=== PATIENT | female | born 1960 | race Caucasian/White ===

== ENCOUNTER 2020-04-23 13:39 | Outpatient (CLI) | payer BC, SELFPAY ==
--- NOTE | ~2020-04-23 | MR_ITS ---
EXAMINATION: MR brain/brain stem wo/w con DATE: 04/23/2020 14:48 INDICATION: Seizures. TECHNIQUE: Magnetic resonance imaging (MRI) of the brain and brainstem was performed without and with 10 mL MultiHance intravenous contrast. Sequences included sagittal and axial T1-weighted FSE, axial diffusion-weighted FS EPI, axial T2*-weighted GRE, axial T2-weighted FLAIR Propeller, and axial T2-we ighted Propeller. Postcontrast sequences included axial and coronal T1-weighted FSE. Apparent diffusi on coefficient (ADC) maps were created. COMPARISON: Head CT 09/01/2019, cervical spine CT 08/27/2016 FINDINGS: There are scattered areas of nonspecific increased T2-weighted signal intensity in the cere bral white matter, which is within normal limits for the patient's age. There is no intracranial hemo rrhage, acute infarction, or abnormal intracranial mass lesion. The ventricles are normal in size. Th e orbits are normal. Right maxillary sinus is small. There are small bilateral mastoid effusions. Aga in seen is an os odontoideum. IMPRESSION: 1. Normal aging brain. Reviewed, dictated and finalized at location A. IMPRESSION: 1. Normal aging brain.
[2020-04-23 14:19] LABS: Estimated Glomerular Filt Rate > 60
== END 2020-04-23 13:40 | disposition home or self-care (01) ==
PROVIDERS: PCP Psychiatry & Neurology Neurology; Visit Provider Psychiatry & Neurology Neurology
DX: R56.9 Unspecified convulsions (principal)
CPT/HCPCS: 36415; 70553; A9577

== ENCOUNTER 2021-08-01 11:24 | Outpatient (CLI) | payer BC, SELFPAY ==
--- NOTE | ~2021-08-01 | XR_ITS ---
EXAMINATION:XR cervical spine 4-5V DATE: 08/01/2021 12:09 INDICATION: Neck pain, paresthesia of the skin TECHNIQUE: AP, lateral, lateral swimmers and odontoid views of the cervical spine are provided. COMPARISON: CT, 08/27/2016 FINDINGS: There our 2 mm of anterolisthesis of C3 on C4. No fracture is identified. The vertebral bod y heights are maintained there is mild chronic loss of intervertebral disc space height from C4-5 thr ough C6-7. Small degenerative osteophytes project from the anterior endplates of multiple vertebral b odies. There is a chronic os odontoideum, better appreciated on the comparison CT. Prevertebral soft tissues are normal. Patchy opacities are incidentally noted in both lungs. IMPRESSION: 1. Mild cervical spondylosis without acute findings or significant interval change. 2. Patchy bilateral airspace opacities with an appearance consistent with pneumonia/or pulmonary chet a. Recommend correlation for any associated symptoms, particularly those of COVID 19. Reviewed, dictated and finalized at location A. IMPRESSION: 1. Mild cervical spondylosis without acute findings or significant interval marcelo nge. 2. Patchy bilateral airspace opacities with an appearance consistent with pneum onia/or pulmonary edema. Recommend correlation for any associated symptoms, par ticularly those of COVID 19.
--- NOTE | ~2021-08-01 | XR_ITS ---
EXAMINATION: XR thoracic spine 3V DATE: 08/01/2021 12:09 INDICATION: Back pain, paresthesia of the skin TECHNIQUE: AP, lateral and lateral swimmer's views of the thoracic spine were obtained. COMPARISON: None. FINDINGS: No fractures identified. The vertebral body heights and alignment are normal. There is mild loss of intervertebral disc space height at a few levels in the thoracic spine. Small degenerative o steophytes project from the anterior endplates of multiple vertebral bodies. There are patchy bilater al airspace opacities. Changes of coronary artery bypass grafting and cardiac valve surgery are noted . IMPRESSION: 1. Mild thoracic spondylosis without acute findings. 2. Patchy bilateral airspace opacities with an appearance consistent with pneumonia/or pulmonary chet a. Recommend correlation for any associated symptoms, particularly those of COVID 19. Reviewed, dictated and finalized at location A. IMPRESSION: 1. Mild thoracic spondylosis without acute findings. 2. Patchy bilateral airspace opacities with an appearance consistent with pneum onia/or pulmonary edema. Recommend correlation for any associated symptoms, par ticularly those of COVID 19.
--- NOTE | ~2021-08-01 | XR_ITS ---
EXAMINATION: XR lumbar spine 2-3V DATE: 08/01/2021 12:09 INDICATION: Low back pain, paresthesias of the skin TECHNIQUE: Anteroposterior and lateral views of the lumbar spine, and cone-down lateral view of the l umbosacral junction were obtained. COMPARISON: None. FINDINGS: The vertebral body heights, alignment, and intervertebral disc spaces are normal. There is no fracture. Small degenerative osteophytes project from the anterior endplates of multiple vertebral bodies. Mild facet osteoarthritis is noted in the lower lumbar spine. There are phleboliths of pelvi s. The bowel gas pattern is normal. IMPRESSION: 1. Mild lumbar spondylosis without acute findings. Reviewed, dictated and finalized at location A.
== END 2021-08-01 11:25 | disposition home or self-care (01) ==
PROVIDERS: PCP Nurse Practitioner Family; Visit Provider Nurse Practitioner Family
DX: M47.815 Spondylosis without myelopathy or radiculopathy, thoracolumbar region (principal); M47.813 Spondylosis without myelopathy or radiculopathy, cervicothoracic region; R20.2 Paresthesia of skin
CPT/HCPCS: 72050; 72072; 72100